=== PATIENT | female | born 1945 | race Caucasian/White ===

== ENCOUNTER 2018-08-31 07:47 | Day surgery (SDC) | payer MEDICARE ==
[2018-08-31] VITALS (8 sets, daily range): BP systolic 105–127; BP diastolic 60–82
[~2018-08-31] VITALS: Ht 157.5 cm; Wt 72.4 kg
[~2018-08-31 07:47] MED LIST: ALBU8.5H8 IH; ASPI-1197 PO; BUDE10.2 IH; FLUT15.812 NS; L GA1CAP2 PO; LIPA1CAP18 PO; LISI10TA7 PO; MELO-106 PO; PANT40TA25 PO; SODIUM CHLORIDE 0.9% 1000ML 1,000 ML IV ONE
[2018-08-31] MEDS ORDERED: PROPOFOL 10 MG/ML 20ML VIAL IV ONE (10:49)
== END 2018-08-31 11:55 | disposition home or self-care (01) ==
LOC: DAH 07:47 → ENDO 07:47
PROVIDERS: ATTEND Internal Medicine
DX: K29.50 Unspecified chronic gastritis without bleeding (principal); K44.9 Diaphragmatic hernia without obstruction or gangrene; K29.70 Gastritis, unspecified, without bleeding; Z86.73 Personal history of transient ischemic attack (TIA), and cerebral infarction without residual deficits; Z95.0 Presence of cardiac pacemaker; M19.90 Unspecified osteoarthritis, unspecified site; J45.909 Unspecified asthma, uncomplicated; Z68.30 Body mass index [BMI] 30.0-30.9, adult; Z90.49 Acquired absence of other specified parts of digestive tract; Z90.710 Acquired absence of both cervix and uterus; Z98.890 Other specified postprocedural states; Z98.49 Cataract extraction status, unspecified eye; Z79.899 Other long term (current) drug therapy; I25.10 Atherosclerotic heart disease of native coronary artery without angina pectoris; Z88.0 Allergy status to penicillin; I11.0 Hypertensive heart disease with heart failure; I50.9 Heart failure, unspecified
CPT/HCPCS: 43237; 43239; 88305; 93005; A4606; J2704; J7030

== ENCOUNTER → 2019-11-04 | Outpatient (CLI) | payer MEDICARE ==
--- NOTE | 2019-10-03 13:13 | NUR ---
PT REPORTS NOT FEELING UP TO HAVING TESTING DONE TODAY. PT WAS R/S TO 10/14/19
[~2019-11-04] VITALS: Ht 157.5 cm; Wt 74.4 kg
[~2019-11-04] MED LIST changes: -ALBU8.5H8 IH; +REGADENOSON 0.4 MG/5 ML PF SYG IVP SCH; -SODIUM CHLORIDE 0.9% 1000ML 1,000 ML IV ONE
== END | disposition home or self-care (01) ==
LOC: SHCH 10-03 08:28
PROVIDERS: ATTEND Internal Medicine Cardiovascular Disease
DX: R07.9 Chest pain, unspecified (principal); R06.00 Dyspnea, unspecified; R53.83 Other fatigue
CPT/HCPCS: 78452; 93017; 96374; A9500 ×2; J2785